=== PATIENT | female | born 1965 | race African-American/Black ===

== ENCOUNTER 2017-11-03 09:00 | Emergency (ER) | END 2017-11-03 11:30 | disposition home or self-care (01) ==

== ENCOUNTER 2017-11-30 20:07 | Inpatient (IN) | END 2017-12-01 13:23 | disposition home or self-care (01) | DRG 313 ==

== ENCOUNTER 2017-12-02 18:07 | Emergency (ER) | END 2017-12-02 22:30 | disposition home or self-care (01) ==

== ENCOUNTER 2018-06-14 09:52 | Emergency (ER) | payer BC ==
[~2018-06-14] VITALS: Ht 172.7 cm; Wt 65.0 kg
[~2018-06-14 09:52] MED LIST: APIX2.5T PO
[2018-06-14 09:55] VITALS: Ht 172.7 cm; Wt 65.0 kg
[2018-06-14] MEDS ORDERED: APIX5TAB PO (11:16)
--- NOTE | 2018-06-14 11:24 | ERD ---
ER Documentation Chief Complaint Chief Complaint intermittent pressure like pain @ left chest radiates to right arm HPI 52-year-old female presents the emergency department complaining of tingling. Patient states that over the last few days she has had a nonspecific neuropathic tingling type discomfort in her right arm. He then traveled to her right leg. She reported no focal weakness, difficulty speaking or significant headache. She states she has on and off sensation loss to the right upper and lower extremity but no weakness or difficulty speaking. She reports tingling today in both upper and lower extremity. She then states she developed a nonspecific discomfort in the right side of her chest without shortness of breath or hemoptysis. She states she has been taking Eliquis up until last week. She has no other acute complaints including no fevers, sputum production or other complaints. ROS All systems reviewed and are negative except as per history of present illness. Medications Home Meds Reported Medications Apixaban* (Eliquis*) 5 Mg Tablet, 5 MG PO BID, TAB 06/14/18 Discontinued Reported Medications Apixaban* (Eliquis*) 2.5 Mg Tablet, 10 MG PO BID, TAB 11/30/17 Allergies Allergies: Coded Allergies: Penicillins (Verified Allergy, Severe, 11/03/17) Sulfa (Sulfonamide Antibiotics) (Verified Allergy, Severe, 11/03/17) iodine (Verified Allergy, Severe, 11/03/17) PMhx/Soc History of Surgery: Yes (right knee) Anesthesia Reaction: No Hx Neurological Disorder: Yes (legs buckle up when walking; numbness tingling legs, feet, hands) Hx Respiratory Disorders: No Hx Cardiac Disorders: No Hx Psychiatric Problems: No Hx Miscellaneous Medical Probl: Yes (DVT on Left Thigh, PE) Hx Alcohol Use: No Hx Substance Use: No Hx Tobacco Use: No FmHx Family history of blood clots Physical Exam Vitals Vital Signs Date Temp Pulse Resp B/P (MAP) Pulse Ox O2 O2 Flow FiO2 Time Delivery Rate 06/14/18 98.2 74 19 132/60 09:55 (84) Physical Exam GENERAL: The patient is well developed and appropriate for usual state of health in no apparent distress HEENT: Pupils equal, round, and reactive to light. EOMI. There is no scleral icterus. NECK: C-spine is soft and supple, there is no meningismus. There is no cervical lymphadenopathy. LUNGS: Clear to auscultation bilaterally. There are no rales, wheezes or rhonchi. HEART: Regular rate and rhythm, no murmurs, clicks, rubs or gallops. ABDOMEN: Soft, non-tender, non-distended. There are bowel sounds in all four quadrants. No rebound or guarding. EXTREMITIES: There is no peripheral cyanosis or edema. No focal swelling or e rythema. NEURO: The patient moves all four extremities with 5/5 strength. Cranial nerves II - XII are intact. Normal gait. Alert and oriented SKIN: There is no apparent rash or petechiae. HEME/LYMPHATIC: There is no evidence of excessive bruising or lymphedema. PSYCHIATRIC: The patient does not appear anxious or depressed. Result Diagram: 06/14/18 1022 06/14/18 1022 Results 24 hrs Laboratory Tests Test 06/14/18 10:22 White Blood Count 6.0 10^3/ul Red Blood Count 4.16 10^6/ul Hemoglobin 12.8 g/dl Hematocrit 39.4 % Mean Corpuscular Volume 94.7 fl Mean Corpuscular Hemoglobin 30.8 pg Mean Corpuscular Hemoglobin Concent 32.5 g/dl Red Cell Distribution Width 12.6 % Platelet Count 192 10^3/UL Mean Platelet Volume 11.2 fl Immature Granulocytes % 0.000 % Neutrophils % 46.9 % Lymphocytes % 42.6 % Monocytes % 8.7 % Eosinophils % 1.0 % Basophils % 0.8 % Nucleated Red Blood Cells % 0.0 /100WBC Immature Granulocytes # 0.000 10^3/ul Neutrophils # 2.8 10^3/ul Lymphocytes # 2.6 10^3/ul Monocytes # 0.5 10^3/ul Eosinophils # 0.1 10^3/ul Basophils # 0.1 10^3/ul Nucleated Red Blood Cells # 0.0 10^3/ul Prothrombin Time 12.5 Sec Prothrombin Time Ratio 1.0 INR International Normalized Ratio 0.92 Activated Partial Thromboplast Time 27.8 Sec Sodium Level 146 mmol/L Potassium Level 4.5 mmol/L Chloride Level 104 mmol/L Carbon Dioxide Level 32 mmol/L Anion Gap 10 Blood Urea Nitrogen 12 mg/dl Creatinine 0.81 mg/dl Est Glomerular Filtrat Rate mL/min > 60 mL/min Glucose Level 94 mg/dl Calcium Level 9.8 mg/dl Total Bilirubin 0.5 mg/dl Direct Bilirubin 0.00 mg/dl Indirect Bilirubin 0.5 mg/dl Aspartate Amino Transf (AST/SGOT) 32 IU/L Alanine Aminotransferase (ALT/SGPT) 18 IU/L Alkaline Phosphatase 68 IU/L Troponin I < 0.012 ng/ml Total Protein 8.4 g/dl Albumin 4.5 g/dl Globulin 3.90 g/dl Albumin/Globulin Ratio 1.15 Procedures/MDM Patient was taken to a room, seen and evaluated. Comfort measures were initiated. Diagnostic tests were ordered and reviewed. 3 LEAD RHYTHM STRIP: Normal sinus rhythm without ectopy EK lead EKG reviewed by myself: Normal Sinus Rhythm Normal [place] and intervals No ST elevation, depression, or T wave inversion Impression: Normal EKG RADIOLOGY: Reviewed with the radiologist REEVALUATION: 1120: Diagnostic tests were appreciated and discussed with the patient. She remained nontoxic with a normal neurologic examination. MEDICAL DECISION MAKIN-year-old female with a history of blood clotting disorder for uncertain etiology presents the emergency department nonspecific neuropathic type discomfort. From a neurologic standpoint, she has no obvious neurologic dysfunction and no indication of stroke. CAT scan of the brain also confirms that there does not seem to be an intracranial cause for her symptoms. Furthermore, she has no evidence of acute blood clot with a normal DVT study and no significant symptoms in her chest. She is already on Eliquis and my thoughts are that even if she does have a small pulmonary embolism, she is hemodynamically stable without cardiac or pulmonary symptoms and is going to go back on the Eliquis regardless. For this reason, I have opted not to do a CT of the chest. At this point, she is otherwise stable and appropriate for outpatient supportive care. Departure Diagnosis: Primary Impression: Neuropathy Condition: Stable Patient Instructions: Neuropathy, Peripheral Additional Instructions: See your doctor for follow-up as discussed. Take a copy of your test results, if appropriate, to this follow-up visit. See your doctor or return here if your symptoms do not improve as expected. At any time, please return to the emergency department for any change or worsening in her symptoms. RUBY TORRES Jun 14, 2018 11:24
[2018-06-14 11:36] VITALS: BP 104/80; PULSE 65; RESP 18
== END 2018-06-14 11:39 | disposition home or self-care (01) ==
LOC: E/R 09:52
DX: G62.9 Polyneuropathy, unspecified (principal); R51 Headache
CPT/HCPCS: 36415; 70450; 71045; 80053; 84484; 85025; 85610; 85730; 93005; 93971

== ENCOUNTER 2018-08-23 19:49 | Emergency (ER) | payer BC ==
[~2018-08-23] VITALS: Ht 172.7 cm; Wt 64.7 kg
[~2018-08-23 19:49] MED LIST changes: -APIX2.5T PO; +APIX5TAB PO
[2018-08-23 19:58] VITALS: Ht 172.7 cm; Wt 64.7 kg
[2018-08-23] MEDS ORDERED: IBUPROFEN 800 MG TAB PO ONE (21:30)
[2018-08-23] MEDS ORDERED: IBUP-1542 PO (21:51)
[2018-08-23 22:55] VITALS: BP 114/81; PULSE 58; RESP 18
--- NOTE | 2018-08-23 23:18 | ERD ---
ER Documentation Chief Complaint Chief Complaint dizziness x 3 days, also c/o pain right arm HPI Patient is a 52-year-old female who presents with pain in the right arm. She also is feeling dizzy. It started Tuesday or Tuesday. She has had sharp and intermittent pain. She has had this pain in the past. She tried Tylenol for her pain. Her primary doctor is Dr. Beal. Upon review of old medical records this is the patient's fifth visit to the ER since October 2017. Review of the emergency department information exchange system shows visits to 4 separate emergency departments. ROS All systems reviewed and are negative except as per history of present illness. Medications Home Meds Active Scripts Ibuprofen* (Motrin*) 600 Mg Tab, 600 MG PO Q6H PRN for PAIN AND OR ELEVATED TEMP, #30 TAB Prov:JAKE STORY MD 08/23/18 Discontinued Reported Medications Apixaban* (Eliquis*) 5 Mg Tablet, 5 MG PO BID, TAB 06/14/18 Allergies Allergies: Coded Allergies: Penicillins (Verified Allergy, Severe, 08/23/18) Sulfa (Sulfonamide Antibiotics) (Verified Allergy, Severe, 08/23/18) iodine (Verified Allergy, Severe, 08/23/18) PMhx/Soc History of Surgery: Yes (R Knee Ortho Surg) Anesthesia Reaction: No Hx Neurological Disorder: No Hx Respiratory Disorders: No Hx Cardiac Disorders: No Hx Psychiatric Problems: No Hx Miscellaneous Medical Probl: Yes (DVT on Left Thigh) Hx Alcohol Use: No Hx Substance Use: No Hx Tobacco Use: No Smoking Status: Never smoker FmHx Family History: diabetes Physical Exam Vitals Vital Signs Date Temp Pulse Resp B/P (MAP) Pulse Ox O2 O2 Flow FiO2 Time Delivery Rate 08/23/18 97.8 58 18 114/81 100 Room Air 22:55 (92) 08/23/18 97.8 73 18 129/69 100 19:58 (89) Physical Exam Const: No acute distress Head: Atraumatic Eyes: Normal Conjunctiva ENT: Normal External Ears, Nose and Mouth. Neck: Full range of motion. No meningismus. Resp: Clear to auscultation bilaterally Cardio: Regular rate and rhythm, no murmurs Abd: Soft, non tender, non distended. Normal bowel sounds Skin: No petechiae or rashes Back: No midline or flank tenderness Ext: No cyanosis, or edema, 2+ pulses in the radial arteries bilaterally Neur: Awake and alert Psych: Normal Mood and Affect Results 24 hrs Laboratory Tests Test 08/23/18 21:46 Bedside Glucose 104 mg/dL Current Medications Medications Dose Sig/Danie Start Time Status Last (Trade) Ordered Route PRN Stop Time Admin Dose Reason Admin Ibuprofen 800 mg ONCE ONCE 08/23/18 DC 08/23/18 (Motrin) PO 21:30 21:23 08/23/18 21:31 Procedures/MDM EKG read by me: Rate/Rhythm: Sinus bradycardia rate of 56 Intervals: Normal Impression: Bradycardia without ischemia Chest X-ray 1V Interpreted by me: Soft Tissue: No acute abnormalities Bones: No acute abnormalities Mediastinum/Cardiac Silhouette/Lungs: No acute abnormalities Accu-Chek is normal. Patient is a 52-year-old female who presents with what appears to be a cervical radiculopathy. EKG, chest x-ray, and Accu-Chek were normal. I believe outpatient management is appropriate. I doubt acute coronary syndrome or stroke. Patient will need to follow-up closely with her primary doctor within 24-48 hours for reevaluation. She will be given ibuprofen for pain and inflammation reduction. Departure Diagnosis: Primary Impression: Cervical radiculopathy Additional Impression: Dizziness Condition: Fair Patient Instructions: Dizziness, Unk Cause, Radiculopathy, Cervical Referrals: VLAD BEAL MD Additional Instructions: Call your primary care doctor TOMORROW for an appointment during the next 1-2 days.See the doctor sooner or return here if your condition worsens before your appointment time. JAKE STORY MD Aug 23, 2018 23:18
== END 2018-08-23 22:55 | disposition home or self-care (01) ==
LOC: E/R 19:49
DX: M54.12 Radiculopathy, cervical region (principal)
CPT/HCPCS: 71045; 82962; 93005

== ENCOUNTER 2018-09-04 16:08 | Emergency (ER) | payer BC ==
[~2018-09-04] VITALS: Ht 172.7 cm; Wt 97.8 kg
[~2018-09-04 16:08] MED LIST changes: -APIX5TAB PO; +IBUP-1542 PO
[2018-09-04 16:12] VITALS: Ht 172.7 cm; Wt 97.8 kg
--- NOTE | 2018-09-04 17:31 | ERD ---
ER Documentation Chief Complaint Chief Complaint chest tightness intermittently HPI The patient is a 52-year-old female, presenting to the ER because of intermittent chest tightness for the last few days, burning sensation, cough, worse in the evening when she lays down, improve when she elevates the head of the bed. She had symptom in the past from gastroesophageal reflux disease, she stopped taking her medication. She denies fever, chills, chest pain with vomiting/radiation/exertion/diaphoresis, dyspnea, abdominal pain, vomiting, dysuria. She is under a lot of stress, she is flying to [place] because of a in the family, she does not smoke nor drink Medical history: History of DVT, GERD she did complete 6 months of Eliquis and recently stopped in May 2018 Past surgical history: Right knee arthroscopy many years ago ROS All systems reviewed and are negative except as per history of present illness. Medications Home Meds Active Scripts Pantoprazole* (Protonix*) 40 Mg Tablet.dr, 40 MG PO DAILY, #10 TAB Prov:STACIA HOLLIDAY MD 09/04/18 Discontinued Scripts Ibuprofen* (Motrin*) 600 Mg Tab, 600 MG PO Q6H PRN for PAIN AND OR ELEVATED TEMP, #30 TAB Prov:JAKE STORY MD 08/23/18 Allergies Allergies: Coded Allergies: Penicillins (Verified Allergy, Severe, 09/04/18) Sulfa (Sulfonamide Antibiotics) (Verified Allergy, Severe, 09/04/18) iodine (Verified Allergy, Severe, 09/04/18) PMhx/Soc History of Surgery: Yes (R Knee Ortho Surg) Anesthesia Reaction: No Hx Neurological Disorder: No Hx Respiratory Disorders: No Hx Cardiac Disorders: No Hx Psychiatric Problems: No Hx Miscellaneous Medical Probl: Yes (DVT on Left Thigh) Hx Alcohol Use: No Hx Substance Use: No Hx Tobacco Use: No Physical Exam Vitals Vital Signs Date Temp Pulse Resp B/P (MAP) Pulse Ox O2 O2 Flow FiO2 Time Delivery Rate 09/04/18 75 16 113/86 100 Room Air 18:46 (95) 09/04/18 73 16 126/86 100 Room Air 17:40 (99) 09/04/18 97.8 74 18 141/79 100 16:12 (99) Physical Exam Const: No acute distress. Head: Atraumatic. Eyes: Normal Conjunctiva. ENT: Normal External Ears, Nose and Mouth. Neck: Full range of motion. No meningismus. Resp: Clear to auscultation bilaterally. Cardio: Regular rate and rhythm. Abd: Soft, non distended, normal bowel sounds, non tender. Skin: No petechiae or rashes. Back: No midline or flank tenderness. Ext: No cyanosis, or edema. Neur: Awake and alert. No focal deficit Psych: Normal Mood and Affect. Result Diagram: 09/04/18180509/04/181805 Results 24 hrs Laboratory Tests Test 09/04/18 18:06 White Blood Count 6.2 10^3/ul Red Blood Count 4.12 10^6/ul Hemoglobin 12.6 g/dl Hematocrit 38.1 % Mean Corpuscular Volume 92.5 fl Mean Corpuscular Hemoglobin 30.6 pg Mean Corpuscular Hemoglobin Concent 33.1 g/dl Red Cell Distribution Width 12.9 % Platelet Count 210 10^3/UL Mean Platelet Volume 10.6 fl Immature Granulocytes % 0.000 % Neutrophils % 44.6 % Lymphocytes % 42.6 % Monocytes % 10.5 % Eosinophils % 1.5 % Basophils % 0.8 % Nucleated Red Blood Cells % 0.0 /100WBC Immature Granulocytes # 0.000 10^3/ul Neutrophils # 2.8 10^3/ul Lymphocytes # 2.6 10^3/ul Monocytes # 0.7 10^3/ul Eosinophils # 0.1 10^3/ul Basophils # 0.1 10^3/ul Nucleated Red Blood Cells # 0.0 10^3/ul D-Dimer 321.26 ng/ml D-Dimer Comment Sodium Level 141 mmol/L Potassium Level 4.0 mmol/L Chloride Level 105 mmol/L Carbon Dioxide Level 27 mmol/L Anion Gap 9 Blood Urea Nitrogen 18 mg/dl Creatinine 0.91 mg/dl Est Glomerular Filtrat Rate mL/min > 60 mL/min Glucose Level 81 mg/dl Calcium Level 9.9 mg/dl Troponin I < 0.012 ng/ml Current Medications Medications Dose Sig/Danie Start Time Status Last (Trade) Ordered Route PRN Stop Time Admin Dose Reason Admin 40 mg ONCE ONCE 09/04/18 DC Pantoprazole IV 18:00 09/04/18 (Protonix 18:18 Iv) 40 mg ONCE ONCE 4/8/19 DC Pantoprazole PO 18:30 09/04/18 (Protonix 18:31 Tab) Procedures/MDM [place] [id number] Radiology Main Line: [phone] DIAGNOSTIC IMAGING REPORT Patient: RICH MCQUEEN : 1965 Age: 52 Sex: F MR #: [id number] DOS: 09/04/18 1746 Ordering MD: STACIA HOLLIDAY MD Location: E/R Room/Bed: PROCEDURE: XR Chest. CLINICAL INDICATION: Chest pain . TECHNIQUE: Single frontal chest x-ray. COMPARISON: CHEST 08/23/2018 FINDINGS: The lungs are clear of acute infiltrates, edema, effusions, or masses.. The cardiomediastinal silhouette is unremarkable. The osseous structures are intact. IMPRESSION: No acute cardiopulmonary disease. RPTAT: GG .Nicolás Marie MD, MD Date Time Electronically viewed and signed by .Nicolás Marie MD, MD on 09/04/2018 18:52 .L/ CC: STACIA HOLLIDAY MD [id number] EKG: Read by emergency physician Rate/Rhythm: Normal Sinus Rhythm 64 beats/min QRS, ST, T-waves: No ST elevation, no T inversion, sinus arrhythmia Impression: Normal EKG MEDICAL MAKING DECISION: The patient is a 52-year-old female, presenting with acute chest pressure, most likely due to chronic GERD. She was off her Protonix either IV or p.o. but she declined. I do not suspect acute ACS The differential diagnoses considered include but are not limited to acute coronary syndrome, acute myocardial infarction, pericarditis, pulmonary embolism, aortic dissection, pneumonia, pleural effusion, pneumothorax, GERD, chest wall pain. Departure Diagnosis: Primary Impression: Chest pressure Condition: Good Comments She was discharged with Protonix I discussed the findings with the patient. I advised the patient to follow-up with the primary physician in about 2-3 days, sooner if needed and return if any concern. Disclaimer: Inadvertent spelling and grammatical errors are likely due to EHR/dictation software use and do not reflect on the overall quality of patient care. Also, please note that the electronic time recorded on this note does not necessarily reflect the actual time of the patient encounter. STACIA HOLLIDAY MD Sep 04, 2018 17:31
[2018-09-04] MEDS ORDERED: PANTOPRAZOLE 40 MG INJ IV ONE (18:00)
[2018-09-04] MEDS ORDERED: PANTOPRAZOLE (EC) 40 MG TAB PO ONE (18:30)
[2018-09-04 18:46] VITALS: BP 113/86; PULSE 75; RESP 16
[2018-09-04] MEDS ORDERED: PANT40TA3 PO (19:01)
== END 2018-09-04 19:07 | disposition home or self-care (01) ==
LOC: E/R 16:08
DX: R07.89 Other chest pain (principal)
CPT/HCPCS: 71045; 80048; 84484; 85025; 85378; 93005

== ENCOUNTER 2018-11-04 14:28 | Emergency (ER) | payer BC ==
[~2018-11-04] VITALS: Ht 172.7 cm; Wt 64.8 kg
[~2018-11-04 14:28] MED LIST changes: -IBUP-1542 PO; +PANT40TA3 PO
[2018-11-04 14:33] VITALS: BP 118/74; PULSE 80; RESP 18; Ht 172.7 cm; Wt 64.8 kg
[2018-11-04] MEDS ORDERED: PEG1POWD PO (16:50)
--- NOTE | 2018-11-04 21:01 | ERD ---
ER Documentation Chief Complaint Chief Complaint constipation on and off x few weeks , last bowel movement on tuesday HPI 53 year old female presenting to the ED for Constipation x 10 days and has left crampy abdominal pain. Patient states that she had a small bowl movement on Tuesday. Patient states this has never happen to her before and denies N/V. Patient states her last colonoscopy was in 2013 and was normal. Patient states this happen to her a few years ago and she was give Golytely which fixed her constipation. Patient denies any allergies to medications. ROS All systems reviewed and are negative except as per history of present illness. Medications Home Meds Active Scripts Peg 3350/Na Sulf,Bicarb,Cl/KCl (Golytely Packet) 1 Each Powd.pack, 1 EACH PO QAM for 7 Days Prov:LORI JUAREZ PA-C 11/04/18 Pantoprazole* (Protonix*) 40 Mg Tablet., 40 MG PO DAILY, #10 TAB Prov:STACIA HOLLIDAY MD 09/04/18 Allergies Allergies: Coded Allergies: Penicillins (Verified Allergy, Severe, 09/04/18) Sulfa (Sulfonamide Antibiotics) (Verified Allergy, Severe, 09/04/18) iodine (Verified Allergy, Severe, 09/04/18) PMhx/Soc History of Surgery: Yes (R Knee Ortho Surg) Anesthesia Reaction: No Hx Neurological Disorder: No Hx Respiratory Disorders: No Hx Cardiac Disorders: No Hx Psychiatric Problems: No Hx Miscellaneous Medical Probl: Yes (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 Neck: Full range of motion. No meningismus. Resp: Clear to auscultation bilaterally Cardio: Regular rate and rhythm, no murmurs Abd: LLQ pain on palpation, NO CVA tenderness, Result Diagram: 11/04/18 1543 11/04/18 1543 Results 24 hrs Laboratory Tests Test 11/04/18 15:43 White Blood Count 4.7 10^3/ul Red Blood Count 4.06 10^6/ul Hemoglobin 12.4 g/dl Hematocrit 38.1 % Mean Corpuscular Volume 93.8 fl Mean Corpuscular Hemoglobin 30.5 pg Mean Corpuscular Hemoglobin Concent 32.5 g/dl Red Cell Distribution Width 13.2 % Platelet Count 192 10^3/UL Mean Platelet Volume 10.5 fl Immature Granulocytes % 0.000 % Neutrophils % 37.3 % Lymphocytes % 49.8 % Monocytes % 10.2 % Eosinophils % 1.9 % Basophils % 0.8 % Nucleated Red Blood Cells % 0.0 /100WBC Immature Granulocytes # 0.000 10^3/ul Neutrophils # 1.8 10^3/ul Lymphocytes # 2.4 10^3/ul Monocytes # 0.5 10^3/ul Eosinophils # 0.1 10^3/ul Basophils # 0.0 10^3/ul Nucleated Red Blood Cells # 0.0 10^3/ul Urine Color STRAW Urine Clarity CLEAR Urine pH 5.0 Urine Specific [place] 1.009 Urine Ketones NEGATIVE mg/dL Urine Nitrite NEGATIVE mg/dL Urine Bilirubin NEGATIVE mg/dL Urine Urobilinogen NEGATIVE mg/dL Urine Leukocyte Esterase NEGATIVE [place]/ul Urine Microscopic RBC 1 /HPF Urine Microscopic WBC 2 /HPF Urine Hemoglobin 1+ mg/dL Urine Glucose NEGATIVE mg/dL Urine Total Protein NEGATIVE mg/dl Sodium Level 141 mmol/L Potassium Level 3.9 mmol/L Chloride Level 105 mmol/L Carbon Dioxide Level 29 mmol/L Anion Gap 7 Blood Urea Nitrogen 11 mg/dl Creatinine 0.80 mg/dl Est Glomerular Filtrat Rate mL/min > 60 mL/min Glucose Level 74 mg/dl Calcium Level 9.3 mg/dl Total Bilirubin 0.5 mg/dl Direct Bilirubin 0.00 mg/dl Indirect Bilirubin 0.5 mg/dl Aspartate Amino Transf (AST/SGOT) 48 IU/L Alanine Aminotransferase (ALT/SGPT) 16 IU/L Alkaline Phosphatase 74 IU/L Total Protein 8.3 g/dl Albumin 4.2 g/dl Globulin 4.10 g/dl Albumin/Globulin Ratio 1.02 Lipase 70 U/L Procedures/MDM ED Course: Physical exam Rectal examination: [facility] CT Imaging PROCEDURE: CT Abdomen and Pelvis Without Intravenous Contrast CLINICAL INDICATION: Abdominal pain. Rule out bowel obstruction or constipation. TECHNIQUE: Axial computed tomography images of the abdomen and pelvis without intravenous contrast. Sagittal and coronal reformatted images were created and reviewed. CTDIvol (mGy) = 6.8; total DLP (mGy-cm) = 358.6. This CT exam was performed using one or more of the following dose reduction techniques: automated exposure control, adjustment of the mA and/or kV according to patient size, and/or use of iterative reconstruction technique. DICOM images are available. COMPARISON: None FINDINGS: LIMITATIONS: Lack of IV and oral contrast limits sensitivity of exam. LUNG BASES: Unremarkable. No mass. No consolidation. ABDOMEN: LIVER: Unremarkable. GALLBLADDER AND BILE DUCTS: Unremarkable. No calcified stones. No ductal dilation. PANCREAS: Unremarkable. No ductal dilation. SPLEEN: Unremarkable. No splenomegaly. ADRENALS: Unremarkable. No mass. KIDNEYS AND URETERS: Unremarkable. No obstructing stones. No hydronephrosis. STOMACH AND BOWEL: Mild retained feces throughout the colon consistent with constipation. No obstruction. No mucosal thickening. PELVIS: APPENDIX: No findings to suggest acute appendicitis. BLADDER: Unremarkable. No stones. REPRODUCTIVE: Unremarkable as visualized. ABDOMEN and PELVIS: INTRAPERITONEAL SPACE: Unremarkable. No free air. No significant fluid collection. BONES/JOINTS: No acute fracture. No dislocation. SOFT TISSUES: Unremarkable. VASCULATURE: Unremarkable. No abdominal aortic aneurysm. LYMPH NODES: Unremarkable. No enlarged lymph nodes. IMPRESSION: 1. Mild retained feces throughout the colon consistent with constipation. 2. Otherwise unremarkable noncontrast CT abdomen and pelvis without acute pa thology identified. No evidence of bowel dilatation or obstruction. MDM Patient 53 year old female presenting with constipation x 10 days. Patient physical exam revealed mild tenderness to palpation to the left lower abdominal region. A rectal exam revealed no impaction of feces. Patient was sent for abdominal CT which showed no evidence of bowel dilation or obstruction. Patient was offered treatment of magnesium citrate in the ER, but the patient states she prefers to do a treatment at home. The patient states that [facility] worked for her last time this happen. At this time of discharge I have low suspicion for appendicitis, cholecystitis, choledocholithiasis, cholangitis, pancreatitis, bowel obstruction, pyelonephritis, hepatitis, perforated viscus, diverticulitis, strangulated hernia , acute abdomen, AAA, aortic dissection, DKA, Mesenteric ischemia, or any emergent conditions. The patient has good follow up care and was advised to follow up with her PCP in 1-2 days regarding this visit. The patient was given a prescription fo Golytel. The patient was advised if symptoms worsen return the ER immediately. The patient had no further questions upon discharge. Departure Diagnosis: Primary Impression: Constipation Constipation type: slow transit constipation Qualified Codes: K59.01 - Slow transit constipation Condition: Stable Patient Instructions: Constipation (Adult) Referrals: [facility] YOU HAVE RECEIVED A MEDICAL SCREENING EXAM AND THE RESULTS INDICATE THAT YOU DO NOT HAVE A CONDITION THAT REQUIRES URGENT TREATMENT IN THE EMERGENCY DEPARTMENT. FURTHER EVALUATION AND TREATMENT OF YOUR CONDITION CAN WAIT UNTIL YOU ARE SEEN IN YOUR DOCTORS OFFICE WITHIN THE NEXT 1-2 DAYS. IT IS YOUR RESPONSIBILITY TO MAKE AN APPOINTMENT FOR FOLOW-UP CARE. IF YOU HAVE A PRIMARY DOCTOR --you should call your primary doctor and schedule an appointment IF YOU DO NOT HAVE A PRIMARY DOCTOR YOU CAN CALL OUR PHYSICIAN REFERRAL HOTLINE AT IF YOU CAN NOT AFFORD TO SEE A PHYSICIAN YOU CAN CHOSE FROM THE FOLLOWING [facility] [address] [facility]. [facility] [address] [facility]. [facility] [address] [facility] [facility] [address] [facility]. [facility] [address] [facility]. [facility]. [address] [facility] YOU HAVE RECEIVED A MEDICAL SCREENING EXAM AND THE RESULTS INDICATE THAT YOU DO NOT HAVE A CONDITION THAT REQUIRES URGENT TREATMENT IN THE EMERGENCY DEPARTMENT. FURTHER EVALUATION AND TREATMENT OF YOUR CONDITION CAN WAIT UNTIL YOU ARE SEEN IN YOUR DOCTORS OFFICE WITHIN THE NEXT 1-2 DAYS. IT IS YOUR RESPONSIBILITY TO MAKE AN APPOINTMENT FOR FOLOW-UP CARE. IF YOU HAVE A PRIMARY DOCTOR --you should call your primary doctor and schedule and appointment IF YOU DO NOT HAVE A PRIMARY DOCTOR YOU CAN CALL OUR PHYSICIAN REFERRAL HOTLINE AT . IF YOU CAN NOT AFFORD TO SEE A PHYSICIAN YOU CAN CHOSE FROM THE FOLLOWING [facility] INSTITUTIONS: [facility] [address] [place] [address] [facility] [address] [place] [address] [facility] + [facility] [address] [place] [address] LORI JUAREZ PA-C Nov 04, 2018 20:58
== END 2018-11-04 17:01 | disposition home or self-care (01) ==
LOC: FTE 14:28
DX: K59.01 Slow transit constipation (principal)
CPT/HCPCS: 36415; 74176; 80053; 81001; 83690; 85025

== ENCOUNTER 2019-02-10 14:56 | Emergency (ER) | payer BC ==
[~2019-02-10] VITALS: Ht 172.7 cm; Wt 64.2 kg
[~2019-02-10 14:56] MED LIST changes: +AZIT250T PO; +D-ME473S2 PO; +IBUP-1542 PO; +IBUP800T48 PO; +PEG1POWD PO
[2019-02-10 14:59] VITALS: Ht 172.7 cm; Wt 64.2 kg
[2019-02-10 17:39] VITALS: BP 102/69; PULSE 78; RESP 18
== END 2019-02-10 17:54 | disposition home or self-care (01) ==
LOC: E/R 14:56
DX: R20.2 Paresthesia of skin (principal)
CPT/HCPCS: 36415; 70450; 80053; 81001; 83690; 84703; 85025

== ENCOUNTER 2019-02-12 20:29 | Emergency (ER) | payer BC ==
[~2019-02-12] VITALS: Ht 172.7 cm; Wt 65.1 kg
[~2019-02-12 20:29] MED LIST changes: -PANT40TA3 PO; -PEG1POWD PO
[2019-02-12 20:42] VITALS: Ht 172.7 cm; Wt 65.1 kg
[2019-02-13 00:02] VITALS: BP 138/80; PULSE 78; RESP 14
== END 2019-02-13 | disposition home or self-care (01) ==
LOC: E/R 20:29
DX: R51 Headache (principal)
CPT/HCPCS: 99282